=== PATIENT | male | born 1940 | race Caucasian/White ===

== ENCOUNTER 2016-07-19 18:58 | Emergency (ER) | payer OTHER, MEDICARE ==
[2016-07-19 19:16] VITALS: O2SAT 94
--- NOTE | 2016-07-19 19:48 | EDPHY ---
H & P Stated Complaint: SOB sent from urgent care for eval of potential pnuemonia Time Seen by Provider: 07/19/16 19:36 HPI/ROS: CHIEF COMPLAINT: Requests antibiotics HISTORY OF PRESENT ILLNESS: The patient is a 75-year-old man with a history of COPD, adenocarcinoma of the lung status post resection, coronary artery disease and diabetes who presented to the urgent care complaining of shortness of breath and requesting a prescription for a Z-Miguel. He had forgot to take his daily dose of albuterol today. He was told by Dr. Filiberto Florez when he has exacerbation to get started on antibiotics because he frequently has an infection as well. At the urgent care the performed a chest x-ray which showed atelectasis, scarring and possibly pneumonia as well as severe scoliosis. They were concerned and wanted to do lab work and possibly a CT scan. They did not have any previous imaging for comparison. Patient and family refused this and stated that they are only there to get a prescription for antibiotics. They left and came here. I have compared his chest x-ray done today to previous. It is unchanged. He was given a DuoNeb as well as 40 mg of prednisone at the urgent care as well as IM Rocephin and azithromycin dose. He is currently asymptomatic. His wheezing resolved. He is saturating 97% on room air and breathing comfortably. He has been afebrile. No cough. No chest pain or palpitations . REVIEW OF SYSTEMS: Constitutional: denies: chills, fever, recent illness, recent injury EENTM: denies: blurred vision, double vision, nose congestion Respiratory: See HPI Cardiac: denies: chest pain, irregular heart rate, lightheadedness, palpitations Gastrointestinal/Abdominal: denies: abdominal pain, diarrhea, nausea, vomiting, blood streaked stools Genitourinary: denies: dysuria, frequency, hematuria, pain Musculoskeletal: denies: joint pain, muscle pain Skin: denies: lesions, rash, jaundice, bruising Neurological: denies: headache, numbness, paresthesia, tingling, dizziness, weakness Hematologic/Lymphatic: denies: blood clots, easy bleeding, easy bruising Immunologic/allergic: denies: HIV/AIDS, transplant EXAM: GENERAL: Well-appearing, well-nourished and in no acute distress. HEAD: Atraumatic, normocephalic. EYES: Pupils equal round and reactive to light, extraocular movements intact, sclera anicteric, conjunctiva are normal. ENT: TMs normal, nares patent, oropharynx clear without exudates. Moist mucous membranes. NECK: Normal range of motion, supple without lymphadenopathy or JVD. LUNGS: Breath sounds clear to auscultation bilaterally and equal. No wheezes rales or rhonchi. HEART: Regular rate and rhythm without murmurs, rubs or gallops. ABDOMEN: Soft, nontender, normoactive bowel sounds. No guarding, no rebound. No masses appreciated. BACK: No CVA tenderness, no spinal tenderness, step-offs or deformities EXTREMITIES: Normal range of motion, no pitting or edema. No clubbing or cyanosis. NEUROLOGICAL: Cranial nerves II through XII grossly intact. Normal speech, normal gait. 5/5 strength, normal movement in all extremities, normal sensation PSYCH: Normal mood, normal affect. SKIN: Warm, dry, normal turgor, no visible rashes or lesions. Source: Patient, RN/MD - Personal History Current Tetanus/Diphtheria Vaccine: Yes Current Tetanus Diphtheria and Acellular Pertussis (TDAP): Yes Tetanus Vaccine Date: 2004 - Medical/Surgical History Hx Asthma: Yes Hx Chronic Respiratory Disease: Yes Hx Diabetes: No Hx Cardiac Disease: Yes Hx Renal Disease: No Hx Cirrhosis: No Hx Alcoholism: No Hx HIV/AIDS: No Hx Splenectomy or Spleen Trauma: No Other PMH: Lung Ca , L UPPER LOBECTOMY CARDIAC STENTS. Hyperlipidemia, appy, - Family History Significant Family History: No pertinent family hx - Social History Smoking Status: Former smoker Alcohol Use: Sober Drug Use: None Constitutional: Initial Vital Signs Temperature (C) 37 C 07/19/16 19:14 Heart Rate 57 L 07/19/16 19:14 Respiratory Rate 16 07/19/16 19:14 Blood Pressure 133/77 H 07/19/16 19:14 O2 Sat (%) 94 07/19/16 19:14 O2 Delivery Mode Room Air Allergies/Adverse Reactions: No Known Allergies Allergy (Verified 09/04/15 11:21) Home Medications: Medication Instructions Recorded Aspirin [Aspirin 81mg (*)] 81 mg PO HS 06/02/14 Bimatoprost 0.01% [Lumigan 0.01% 1 drops EACHEYE HS 06/02/14 (*)] Clopidogrel Bisulfate [Plavix (*)] 75 mg PO DAILY 06/02/14 Metoprolol Tartrate [Lopressor 25 25 mg PO HS 06/02/14 mg (*)] Multivitamin with Minerals 1 each PO DAILY 06/02/14 [Multiple Vitamin] Psyllium Husk (with Sugar) 1 each PO HS 06/02/14 [Metamucil Packet] Simvastatin [Zocor] 80 mg PO DAILY18 06/02/14 Timolol 0.5% [TIMOPTIC 0.5% (*)] 1 drops LEFTEYE DAILY 06/02/14 Ciprofloxacin [Cipro] 500 mg PO BID 08/22/15 Krill/Om3/Dha/Epa/Om6/Lip/Astx 1 ea PO DAILY 08/22/15 [KRILL OIL 1,000 MG SOFTGEL] Omeprazole [Prilosec 20 mg] 20 mg PO DAILY #30 capsule. 08/22/15 metFORMIN HCL [Glucophage 500 mg 500 mg PO BIDMEAL #60 tab 08/22/15 (*)] predniSONE [Prednisone] 30 mg PO DAILY 08/22/15 AZITHROMYCIN [Z-PACK] 250 mg PO DAILY #6 tab 07/19/16 predniSONE 60 mg PO DAILY #15 tab 07/19/16 Medical Decision Making ED Course/Re-evaluation: The patient's x-ray done today at urgent care looks very similar to his 1 done a year ago. The patient is currently asymptomatic after treat with a DuoNeb and steroids. He does not wish to have further testing. He and his are here only for antibiotics and will follow up with Dr. Filiberto Florez on Thursday. I agree that this is reasonable plan and that he looks well. We discussed indications for returning sooner. I will write her prescription for Z-Miguel and steroid burst. Differential Diagnosis: Partial list of the Differential diagnosis considered include but were not limited to; COPD exacerbation, bronchitis, pneumonia and although unlikely based on the history and physical exam, I also considered , PE, acute coronary disease, pneumothorax, effusion. I discussed these differential diagnoses and the plan with the patient as well as the usual and expected course. The patient understands that the diagnosis is provisional and that in medicine we are not always correct and that further workup is often warranted. Usual and customary warnings were given. All of the patient's questions were answered. The patient was instructed to return to the emergency department should the symptoms at all worsen or return, otherwise to followup with the physician as we discussed. Departure - Departure Disposition: Home, Routine, Self-Care Clinical Impression: Chronic obstructive pulmonary disease with acute exacerbation Condition: Fair Instructions: COPD (Chronic Obstructive Pulmonary Disease) (ED) Referrals: Kaiden Wang MD [Primary Care Provider] - As per Instructions Filiberto Florez MD [Medical Doctor] - As per Instructions Prescriptions: AZITHROMYCIN [Z-PACK] 250 mg PO DAILY #6 tab predniSONE 60 mg PO DAILY #15 tab
[2016-07-19 20:08] VITALS: BP 133/88; PULSE 80; RESP 14; TEMP 98.4
== END 2016-07-19 20:19 | disposition home or self-care (01) ==
DX: J44.1 Chronic obstructive pulmonary disease with (acute) exacerbation (principal); J45.909 Unspecified asthma, uncomplicated; Z85.118 Personal history of other malignant neoplasm of bronchus and lung; Z87.891 Personal history of nicotine dependence; Z79.82 Long term (current) use of aspirin; Z95.5 Presence of coronary angioplasty implant and graft

== ENCOUNTER → 2016-10-07 | Outpatient (CLI) | payer OTHER, MEDICARE | LOC: CIMAGING 09:56 | PROVIDERS: ATTEND Family Medicine | DX: R42 Dizziness and giddiness (principal); R51 Headache; H53.8 Other visual disturbances | CPT/HCPCS: 70450-PO ==

== ENCOUNTER → 2016-10-27 | Outpatient (CLI) | payer OTHER, MEDICARE | LOC: BHFA 10:30 | PROVIDERS: ATTEND Internal Medicine Cardiovascular Disease | DX: R42 Dizziness and giddiness (principal); I25.10 Atherosclerotic heart disease of native coronary artery without angina pectoris ==

== ENCOUNTER → 2016-11-14 | Outpatient (CLI) | payer OTHER, MEDICARE | LOC: BHFA 11:00 | PROVIDERS: ATTEND Internal Medicine Cardiovascular Disease | DX: I25.10 Atherosclerotic heart disease of native coronary artery without angina pectoris (principal) ==

== ENCOUNTER → 2016-11-18 | Outpatient (CLI) | payer OTHER, MEDICARE | LOC: BHFA 08:30 | PROVIDERS: ATTEND Internal Medicine Cardiovascular Disease | DX: R55 Syncope and collapse (principal) | CPT/HCPCS: 78452; 93017; A9500 ==

== ENCOUNTER 2018-08-05 14:08 | Emergency (ER) | payer OTHER, MEDICARE ==
[2018-08-05] MEDS ORDERED: TDAP ADULT 0.5 ML INJ (BOOSTRIX) IM ONE (14:24)
--- NOTE | 2018-08-05 14:24 | EDPHY ---
H & P Stated Complaint: R thumb injury Time Seen by Provider: 08/05/18 14:17 HPI/ROS: HPI: This is a 77-year-old male who presents with Chief Complaint: Right thumb injury Location: Right thumb Quality: Injury Duration: 1 hr prior to arrival Signs and Symptoms: + bleeding, no radiation, no numbness, no weakness, no tingling, no incontinence, no decreased range of motion, no swelling, no pain, no fever Timing: Acute Severity: Mild Context: Patient is right-hand dominant, takes aspirin daily, presents with accidentally cutting the lateral aspect of his right thumb at the tip while using a table saw while making a piece of equipment for his who recently had surgery. He reports that he "took part of his nail off." He reports that he felt immediate, constant, moderate pain and it started to bleed. He applied direct pressure but the bleeding would not stop. Denies radiation, weakness, decreased range of motion. Modifying Factors: Direct pressure Comment: ROS: A comprehensive 10 system review of systems is otherwise negative aside from elements mentioned in the history of present illness. MEDICAL/SURGICAL/SOCIAL HISTORY: Medical/surgical history: Lung Ca , L UPPER LOBECTOMY, CARDIAC STENTS, Hyperlipidemia, appendectomy Surgical history: Denies Social history: Former smoker. . Retired. CONSTITUTIONAL: Polite and cooperative elderly white male, awake and alert, no obvious distress HEENT: Atraumatic and normocephalic. NECK: supple, no midline tenderness Cardiovascular: Normal S1/S2, regular rate, regular rhythm, without murmur rub or gallop. PULMONARY/CHEST: Symmetrical and nontender. Clear to auscultation bilaterally. Good air movement. No accessory muscle usage. ABDOMEN: Soft, nondistended, nontender. EXTREMITIES: 2/2 pulses, strength 5/5, right thumb lateral aspect on the 1/4 inch of the nail shows partial avulsion with no active bleeding. DIP/PIP/MCP flexion/extension intact with good light touch sensation. no deformities, no clubbing, no cyanosis or edema. NEUROLOGICAL: no focal neuro deficits. GCS 15. Light touch sensation intact. SKIN: Warm and dry, no erythema. no rash. Good capillary refill. Source: Patient Exam Limitations: No limitations - Personal History Current Tetanus/Diphtheria Vaccine: No Current Tetanus Diphtheria and Acellular Pertussis (TDAP): No Tetanus Vaccine Date: 2005 - Medical/Surgical History Hx Asthma: Yes Hx Chronic Respiratory Disease: Yes Hx Diabetes: No Hx Cardiac Disease: Yes Hx Renal Disease: No Hx Cirrhosis: No Hx Alcoholism: No Hx HIV/AIDS: No Hx Splenectomy or Spleen Trauma: No Other PMH: Lung Ca , L UPPER LOBECTOMY CARDIAC STENTS. Hyperlipidemia, appy, - Social History Smoking Status: Former smoker Constitutional: Initial Vital Signs Temperature (C) 36.9 C 08/05/18 14:14 Heart Rate 85 08/05/18 14:14 Respiratory Rate 16 08/05/18 14:14 Blood Pressure 147/83 H 08/05/18 14:14 O2 Sat (%) 90 L 08/05/18 14:14 O2 Delivery Mode Room Air Allergies/Adverse Reactions: No Known Allergies Allergy (Verified 09/04/15 11:21) Home Medications: Medication Instructions Recorded Aspirin [Aspirin 81mg (*)] 81 mg PO HS 06/02/14 Clopidogrel Bisulfate [Plavix (*)] 75 mg PO DAILY 06/02/14 Timolol 0.5% [TIMOPTIC 0.5% (*)] 1 drops LEFTEYE DAILY 06/02/14 Krill/Om3/Dha/Epa/Om6/Lip/Astx 1 ea PO DAILY 08/22/15 [KRILL OIL 1,000 MG SOFTGEL] Omeprazole [Prilosec 20 mg] 20 mg PO DAILY #30 capsule. 08/22/15 metFORMIN HCL [Glucophage 500 mg 500 mg PO BIDMEAL #60 tab 08/22/15 (*)] Albuterol 08/05/18 Atorvastatin Calcium 08/05/18 Cephalexin [Keflex (*)] 500 mg PO TID #21 cap 08/05/18 Lumigan 0.01% (*) 08/05/18 Metoprolol Succinate 08/05/18 oxyCODONE/APAP 5/325 [Percocet 1 - 2 tab PO Q4H PRN #10 tab 08/05/18 5/325 (*)] Medical Decision Making - Diagnostics Imaging Results: Imaging Impressions Finger X-Ray 08/05/18 14:24 Impression: Soft tissue injury. Procedures: Procedure: Laceration repair. Verbal consent was obtained from the patient. The complex, deep, 4 cm, irregular laceration on the right thumb lateral aspect was anesthetized in the usual fashion using a digital block consisting of 5 mL of 1% lidocaine without epinephrine. The wound was irrigated, draped and explored to its base with a gloved finger. There were no deep structures involved. Partial nail avulsion was noted. No tendon injury was identified. The wound was repaired with 2 layer closure; #2; 4-0 Vicryl horizontal buried sutures and #6; 5 0 Prolene in simple interrupted pattern. Good hemostasis was achieved and patient tolerated procedure well. The procedure was performed by myself. Procedure: Nail bed reconstruction. Laceration repair: Verbal consent was obtained from the patient. A nail bed laceration was identified on the right thumb. The finger was anesthetized in the usual fashion using a digital block. The wound was scrubbed, draped and explored to its base with a gloved finger. The nail plate was repaired. There was no fracture identified below the nail bed. The nail bed was reconstructed with #1; 2-0 PDS. The procedure was performed by myself. ED Course/Re-evaluation: Right thumb x-ray ordered and my read via PAC shows no acute fracture, dislocation. Does show soft tissue injury.. Local anesthesia provided and copiously irrigated Tetanus booster and Keflex given. Patient has a history of diabetes mellitus and would benefit from antibiotic prophylaxis Nail avulsion, nail bed, laceration repaired. Please see note. Verbal and written wound care instructions provided. Patient was instructed to follow up with orthopedic hand surgery. No signs of neurovascular compromise/tenting of skin/compartment syndrome/ extremities and joints examined above and below area of concern and are neurovascularly intact. This patient was seen under the supervision of my secondary supervising physician. I evaluated care for this patient independently. Discussed this patient with Dr. Park. Differential Diagnosis: Differential diagnosis includes but is not limited to fracture, foreign body, ligament injury, tendon injury, laceration. - Data Points Medications Given: Discontinued Medications Cephalexin HCl (Keflex) 500 mg PO EDNOW ONE PRN Reason: Protocol Stop: 08/05/18 14:47 Last Admin: 08/05/18 14:56 Dose: 500 mg Diphtheria/Tetanus/Acell Pertussis (Boostrix) 0.5 ml IM .ONCE ONE Stop: 08/05/18 14:25 Last Admin: 08/05/18 14:36 Dose: 0.5 ml Departure - Departure Disposition: Home, Routine, Self-Care Clinical Impression: Laceration of right thumb with complication Qualifiers: Encounter type: initial encounter Qualified Code(s): S61.011A - Laceration without foreign body of right thumb without damage to nail, initial encounter Nail avulsion, finger Qualifiers: Encounter type: initial encounter Qualified Code(s): S61.309A - Unspecified open wound of unspecified finger with damage to nail, initial encounter Condition: Good Instructions: Care For Your Stitches (ED), Laceration (ED), Finger Laceration ( ED) Additional Instructions: Keep the dressing dry and in place until seen by orthopedic/hand surgery. Take Tylenol 650 mg every 4 hours and/or Ibuprofen 600 mg every 8 hours with food as needed for pain. Use Percocet every 6 hours as needed for severe/break through pain. Do not use Tylenol and Percocet concomitantly. Apply ice for 30 minutes at a time; 2-3 times per day for the next 1-2 days. Take antibiotic as directed. Do not skip a dose. Follow up with Orthopedics/hand in 2-3 days at which time they will evaluate and recommend with you if conservative management versus surgery is indicated. Wound Care Follow-Up: Removal of sutures in [ 10 ] days. Suture removal is complimentary in uncomplicated cases. Infection or abnormal findings would require reevaluation by the MD. In that case, you may be billed. Referrals: Kitty Cummings MD [Medical Doctor] - As per Instructions Prescriptions: Cephalexin [Keflex (*)] 500 mg PO TID #21 cap oxyCODONE/APAP 5/325 [Percocet 5/325 (*)] 1 - 2 tab PO Q4H PRN #10 tab PRN Reason: Pain, Severe
[2018-08-05] MEDS ORDERED: SILVER NITRATE APPLICATOR 1 APPL TP ONE (14:39)
[2018-08-05] MEDS ORDERED: CEPHALEXIN 500 MG CAP PO ONE (14:46)
[2018-08-05 15:03] VITALS: BP 133/74
== END 2018-08-05 15:10 | disposition home or self-care (01) ==
DX: S61.111A Laceration without foreign body of right thumb with damage to nail, initial encounter (principal); Z23 Encounter for immunization; W31.2XXA Contact with powered woodworking and forming machines, initial encounter; Y92.89 Other specified places as the place of occurrence of the external cause; Y99.9 Unspecified external cause status; Y93.89 Activity, other specified; Z85.118 Personal history of other malignant neoplasm of bronchus and lung; Z87.891 Personal history of nicotine dependence

== ENCOUNTER 2018-12-11 13:14 | Observation (INO) | payer OTHER, MEDICARE | END 2018-12-12 15:26 | disposition home or self-care (01) | LOC: F2W 17:43 ==